=== PATIENT | male | born 1990 | race Caucasian/White ===

== ENCOUNTER 2018-11-05 08:20 | Emergency (ER) | payer OTHER ==
[~2018-11-05] VITALS: Ht 172.7 cm; Wt 107.3 kg
[2018-11-05] MEDS ORDERED: TETRACAINE 0.5% 4 ML OPHTHALMIC DROPS RIGHTEYE ONE (08:30)
[2018-11-05] MEDS ORDERED: HYDR-4353 PO (08:35)
[2018-11-05] MEDS ORDERED: ERYT1OIN6 RIGHTEYE (08:35)
[2018-11-05] MEDS: proparacaine 0.5% ophthalmic drops 15ml RIGHTEYE ONE (09:25)
[2018-11-05] MEDS: erythromycin ophthalmic ointment 1gm tube RIGHTEYE ONE (09:26)
== END 2018-11-05 09:41 | disposition home or self-care (01) ==
LOC: ER 08:20
DX: S05.01XA Injury of conjunctiva and corneal abrasion without foreign body, right eye, initial encounter (principal); T15.81XA Foreign body in other and multiple parts of external eye, right eye, initial encounter; F17.200 Nicotine dependence, unspecified, uncomplicated; F12.90 Cannabis use, unspecified, uncomplicated; Z98.890 Other specified postprocedural states; Z88.1 Allergy status to other antibiotic agents; Z79.899 Other long term (current) drug therapy; W22.8XXA Striking against or struck by other objects, initial encounter; Y93.89 Activity, other specified; Y92.89 Other specified places as the place of occurrence of the external cause; Y99.8 Other external cause status
CPT/HCPCS: 65205; 99284

== ENCOUNTER 2020-02-03 15:09 | Emergency (ER) | payer MEDICAID ==
[~2020-02-03] VITALS: Ht 175.3 cm; Wt 113.6 kg
[2020-02-03 16:31] LABS: CLARITY,URINE CLEAR (Clear); COLOR,URINE YELLOW (Yellow); GLUCOSE, URINE NEGATIVE (Neg); KETONES,URINE NEGATIVE (Neg); LEUKOCYTE ESTERASE ,URINE NEGATIVE (Neg); NITRITES, URINE NEGATIVE (Neg); OCCULT BLOOD,URINE NEGATIVE (Neg); PH,URINE 6.5 (4.8-8.0); PROTEIN,URINE NEGATIVE (Neg); UROBILINOGEN,URINE 0.2 E.U/dL (0.2-1.0)
[2020-02-03 16:37] LABS: UA COLLECTION TYPE CLN CATCH MIDSTREAM
[2020-02-03 18:12] VITALS: BP 155/102
== END 2020-02-03 18:14 | disposition home or self-care (01) ==
LOC: ER 15:10
DX: N43.40 Spermatocele of epididymis, unspecified (principal); R11.0 Nausea; F12.90 Cannabis use, unspecified, uncomplicated; Z88.1 Allergy status to other antibiotic agents
CPT/HCPCS: 76870; 81003; 93976; 99284